=== PATIENT | female | born 1970 | race Caucasian/White ===

== ENCOUNTER 2019-05-17 13:59 | Emergency (ER) | payer MEDICAID ==
[~2019-05-17] VITALS: Ht 162.6 cm; Wt 93.6 kg
[2019-05-17 14:28] VITALS: BP 125/67
--- NOTE | 2019-05-17 14:39 | NUR ---
WAIT AT LOBBY
--- NOTE | 2019-05-17 15:00 | NUR ---
C/O R CHEST PAIN RADIATING TO R SHOULDER/ARM X2 DAYS. DENIES N/V/D. PT IS ALERT AND ORIENTED, SPEAKING FULL/CLEAR SENTENCES. PT STATES THE PAIN IS "TIGHT" BUT IS NOT SEVERE. PT PLACED ON PRODUCT STEWARD AT THIS TIME.
--- NOTE | 2019-05-17 15:39 | NUR ---
PT AMBULATED TO BED 09
[2019-05-17] MEDS ORDERED: KETOROLAC 30 MG/ML VIAL IM ONE (16:15)
--- NOTE | 2019-05-17 17:20 | NUR ---
ERMD AT BEDSIDE
[2019-05-17] MEDS ORDERED: MORPHINE SULFATE 4 MG/ML SYR IM ONE (17:40)
[2019-05-17] MEDS ORDERED: ONDANSETRON 4 MG ODT PO ONE (17:40)
[2019-05-17 17:59] LABS: BASOPHILS # (AUTO) 0.1 K/uL (0.00-0.22); BASOPHILS % (AUTO) 0.5 % (0.0-2.0); EOSINOPHILS # (AUTO) 0.4 K/uL (0-0.4); EOSINOPHILS % (AUTO) 3.6 % (0.0-4.0); HEMATOCRIT 35.4 % (36-48); HEMOGLOBIN 10.7 g/dL (12.0-16.0); LYMPHOCYTES # (AUTO) 3.3 K/uL (2.5-16.5); LYMPHOCYTES % (AUTO) 28.6 % (20.5-51.1); MEAN CORPUSCULAR HEMOGLOBIN 21 pg (27-31); MEAN CORPUSCULAR HGB CONC 30 g/dL (33-37); MONOCYTES # (AUTO) 0.8 K/uL (0.8-1.0); MONOCYTES % (AUTO) 6.5 % (1.7-9.3); NEUTROPHILS % (AUTO) 60.8 % (42.2-75.2); PLATELET COUNT (AUTO) 290 K/uL (140-450); RED BLOOD CELL COUNT(AUTO) 5.21 MIL/uL (4.20-5.40); RED CELL DISTRIBUTION WIDTH 25.6 % (11.6-13.7); WHITE BLOOD COUNT (AUTO) 11.6 K/uL (4.8-10.8)
[2019-05-17 18:18] LABS: D-DIMER < 100 ng/ml (0-400)
[2019-05-17 18:30] LABS: ANION GAP 15.3 (8-16); CARBON DIOXIDE 23.6 mmol/L (21-32); CREATININE 0.5 mg/dL (0.6-1.3); POTASSIUM 3.9 mmol/L (3.5-5.1)
[2019-05-17 18:38] LABS: ALBUMIN 3.9 g/dL (3.4-5.0); TOTAL BILIRUBIN 0.3 mg/dL (0.0-1.0)
[2019-05-17 18:41] LABS: PROTHROMBIN TIME 9.3 secs (10.8-13.4)
[2019-05-17 19:19] VITALS: BP 121/70
[2019-05-17 19:47] LABS: C-REACTIVE PROTEIN QUANT 2.2 mg/dL (0.0-0.9)
== END 2019-05-17 19:19 | disposition home or self-care (01) ==
LOC: MED 13:59
DX: R07.9 Chest pain, unspecified (principal); E11.9 Type 2 diabetes mellitus without complications
CPT/HCPCS: 36415; 71045; 80053; 83735; 83880; 84484; 85025; 85379; 85610; 85730; 86140; 93005; 96372; 99284; J1885; J2270; Q0092; Q0162